=== PATIENT | male | born 1970 ===

== ENCOUNTER 2019-02-07 00:23 | Emergency (ER) | payer MEDICAID ==
[2019-02-07 01:09] VITALS: BMI 26.9
--- NOTE | 2019-02-07 02:15 | ED PDOC ---
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 Patient states he was laying in bed watching tv around 23:00 when he felt a strong "spinning" sensation, and then a "mckeon" of pins and needles throughout his whole body. Patient also noted a "tapping" sensation on the back of his scalp. Patient states he checked his blood pressure after that episode and it was elevated, 146/106. Patient reports similar episodes after having the stroke and states he was told it could be related to his stroke but he is also concerned because these are similar symptoms he had when he was diagnosed with his stroke so he wanted to get checked out. Patient denies headache, dizziness, extremity numbness/weakness, chest pain, shortness of breath, palpitations, leg pain/swelling. Past Medical History Reviewed: Historical Data, Nursing Documentation, Vital Signs Vital Signs: Last Vital Signs Temp 97.3 F L 02/07/19 01:09 Pulse 65 02/07/19 01:09 Resp 18 02/07/19 01:09 BP 139/94 H 02/07/19 01:09 Pulse Ox 97 02/07/19 01:09 Primary Care Provider: Luiza Jenkins - Medical History PMH: Gastritis, HTN (denies), Hypercholesterolemia, Pancreatitis Denies: Atrial Fibrillation, Chronic Kidney Disease - Surgical History Surgical History: No Surg Hx - Family History Family History: States: Unknown Family Hx - Living Arrangements Living Arrangements: With Family - Social History Current smoker - smoking cessation education provided: No - Immunization History Hx Tetanus Toxoid Vaccination: No Hx Influenza Vaccination: Yes Hx Pneumococcal Vaccination: No - Home Medications Home Medications: Ambulatory Orders Medication Instructions Recorded Aspirin 325 mg PO DAILY #30 tab 12/07/18 Clopidogrel [Plavix] 75 mg PO DAILY #30 tab 12/07/18 Pantoprazole [Protonix EC Tab] 40 mg PO DAILY #30 ect 12/07/18 Rosuvastatin Calcium [Crestor] 5 mg PO HS #30 tab 12/07/18 Acetaminophen/Butalbital/Caf 1 tab PO Q4H PRN #40 tab 12/13/18 [Fioricet] amLODIPine [Norvasc] 5 mg PO DAILY 01/18/19 - Allergies Allergies/Adverse Reactions: Allergies Allergy/AdvReac Type Severity Reaction Status Date / Time amlodipine [From Norvasc] Allergy RASH,HIVES Verified 02/07/19 01:09 Review of Systems ROS Statement: Except As Marked, All Systems Reviewed And Found Negative Neurological: Positive for: Dizziness Physical Exam - Reviewed Nursing Documentation Reviewed: Yes Vital Signs Reviewed: Yes - Physical Exam Appears: Positive for: Well, Non-toxic, No Acute Distress Head Exam: Positive for: ATRAUMATIC, NORMAL INSPECTION, NORMOCEPHALIC Skin: Positive for: Normal Color Eye Exam: Positive for: Normal appearance, EOMI, PERRL ENT: Positive for: Normal ENT Inspection Neck: Positive for: Normal, Painless ROM Cardiovascular/Chest: Positive for: Regular Rate, Rhythm Respiratory: Positive for: Normal Breath Sounds Gastrointestinal/Abdominal: Positive for: Normal Exam Back: Positive for: Normal Inspection Extremity: Positive for: Normal ROM Neurological/Psych: Positive for: Awake, Alert, Oriented (x3). Negative for: Motor/Sensory Deficits, Facial Droop - Laboratory Results Result Diagrams: 02/07/19 03:45 02/07/19 03:45 - ECG ECG: Positive for: Viewed By Me (reviewed by ED attending) ECG Rhythm: Positive for: Sinus Rhythm O2 Sat by Pulse Oximetry: 97 - Progress ED Course And Treament: Chart reviewed, patient with [facility] ED visits in December with same presentation/complaint and normal work up Case discussed with ED attending Dr. Cross, will check labs and order CT head -cbc -cmp -ekg -CT head 4:30 Patient resting comfortably; remains without symptoms. Neuro exam remains intact Patient educated on findings, discharged with instructions to follow up with Neurologist this week Return precautions given Disposition - Clinical Impression Clinical Impression: Dizziness - Patient ED Disposition Is Patient to be Admitted: No Counseled Patient/Family Regarding: Studies Performed, Diagnosis, Need For Followup - Disposition Referrals: Edu Jenkins MD [Primary Care Provider] - Disposition: Routine/Home Disposition Time: 04:45 Condition: IMPROVED Instructions: Vertigo (a Type of Dizziness) Forms: [facility] (Lithuanian)
[2019-02-07 03:57] LABS: BASO # 0.1 K/uL (0.0-0.2); BASO % 0.7 % (0.0-2.0); EOS # 0.2 K/uL (0.0-0.7); EOS % 3.4 % (0.0-4.0); HEMOGLOBIN 13.1 g/dL (12.0-18.0); LYMPH # 2.2 K/uL (1.0-4.3); LYMPH % 31.4 % (20.0-40.0); MEAN CELL VOLUME 89.5 fl (80.0-94.0); MEAN CORPUSCULAR HEMOGLOBIN 30.3 pg (27.0-31.0); MEAN CORPUSCULAR HGB CONC 33.8 g/dL (33.0-37.0); MONO # 0.5 K/uL (0.0-0.8); MONO % 7.6 % (0.0-10.0); NEUT # 4.1 K/uL (1.8-7.0); NEUT % 56.9 % (50.0-75.0); NRBC % 0.1 % (0.0-0.0); RBC 4.34 Mil/uL (4.40-5.90); RED CELL DISTRIBUTION WIDTH 13.4 % (11.5-14.5); WHITE BLOOD COUNT 7.2 K/uL (4.8-10.8)
[2019-02-07 04:14] LABS: ALB/GLOB RATIO 1.5 (1.0-2.1); ALBUMIN 4.1 g/dL (3.5-5.0); ALT/SGPT 65 U/L (21-72); AST/SGOT 42 U/L (17-59); BLOOD UREA NITROGEN 17 mg/dl (9-20); CALCIUM 8.7 mg/dL (8.4-10.2); GFR NON-AFRICAN AMERICAN > 60
[2019-02-07 05:14] VITALS: BP 106/70; PULSE 52; RESP 12; TEMP 98.7; O2SAT 98
--- NOTE | 2019-02-07 10:06 | CARD ---
APPROVED REPORT Date of service: 02/07/2019 EKG Measurement Heart [id number] <Conclusion> Sinus bradycardia Otherwise normal ECG
--- NOTE | 2019-02-07 11:04 | CT ---
Date of service: 02/07/2019 PROCEDURE: CT HEAD WITHOUT CONTRAST. HISTORY: dizziness, h/o PICA stroke COMPARISON: None available. TECHNIQUE: Axial computed tomography images were obtained through the head/brain without intravenous contrast. Radiation dose: Total exam DLP = 779.85 mGy-cm. This CT exam was performed using one or more of the following dose reduction techniques: Automated exposure control, adjustment of the mA and/or kV according to patient size, and/or use of iterative reconstruction technique. FINDINGS: HEMORRHAGE: No intracranial hemorrhage. BRAIN: Normal pa-white matter differentiation and density are appreciated throughout the cerebrum and cerebellum with the brainstem appearing unremarkable as well. There is no mass effect. There is no suspicious extra-axial fluid collection and the midline brain anatomy appears diffusely unremarkable. VENTRICLES: Unremarkable. No hydrocephalus. CALVARIUM: Unremarkable. PARANASAL SINUSES: Unremarkable as visualized. No significant inflammatory changes. MASTOID AIR CELLS: Unremarkable as visualized. No inflammatory changes. OTHER FINDINGS: None. IMPRESSION: Unremarkable unenhanced head CT. Concordant preliminary report from [facility], 02/07/2019, 4:15 a.m..
== END 2019-02-07 05:10 | disposition home or self-care (01) ==
LOC: H.ER 00:23
DX: R42 Dizziness and giddiness (principal)